=== PATIENT | male | born 1935 | race Hispanic/Latino ===

== ENCOUNTER 2022-02-22 13:48 | Observation (INO) | payer SELFPAY ==
[2022-02-22] VITALS (51 sets, daily range): BP systolic 124–182; BP diastolic 56–87; PULSE 60–81; RESP 16–31; TEMP 36.4–36.5; O2SAT 90–100; BMI 32.5
--- NOTE | ~2022-02-22 | XR_ITS ---
EXAMINATION: XR chest 2V Exam Date/Time: 02/22/2022 16:25 CDT HISTORY: CP, SOB Comparison: None available. RESULT: Lines, tubes, and devices: None. Lungs and pleura: Linear bibasilar opacities, likely scar/atelectasis. Calcified granulomas. Cardiomediastinal silhouette: Cardiomegaly. Mild arch calcification. Other: No acute upper abdominal finding. Degenerative change in the right shoulder and thoracic spin e. Moderate anterior wedge deformity at T12. IMPRESSION: No acute cardiopulmonary process. Moderate T12 wedge compression fracture of uncertain age. Correlate with pain/point tenderness. Reviewed, dictated and finalized at location K. IMPRESSION: No acute cardiopulmonary process. Moderate T12 wedge compression fracture of un certain age. Correlate with pain/point tenderness.
--- NOTE | ~2022-02-22 | CT_ITS ---
EXAMINATION: CTA chest PE protocol DATE: 02/22/2022 18:32 INDICATION: cp, sob, back pain, dizziness TECHNIQUE: Computed tomography angiography (CTA) of the chest was performed with 100 mL Omnipaque-350 intravenous contrast timed to evaluate the pulmonary arteries. Coronal maximum intensity projection 3D-reconstructions were created by the technologist. The dose-length product (DLP) was 430.86 mGy-cm. Automated exposure control and iterative reconstruction technique were employed. COMPARISON: X-ray chest, same date. FINDINGS: Lung parenchyma and airways: Motion limited. Right medial basal atelectasis. Right medial basal air c yst. Bilateral basilar scar/atelectasis. Calcified granulomas. Pleura: Unremarkable. Thoracic inlet, axillae and chest wall: Bilateral gynecomastia. Thoracic aorta: Mild ectasia and arch calcification.. Mediastinum: Large hiatal hernia.. Heart and pericardium: Mild cardiomegaly. Coronary artery calcifications: Mild. Upper abdomen: Possible thickening of the lateral gastric wall. Masslike soft tissue density projecti ng in the herniated portion of the gastric fundus. Left liver lobe calcification. Bilateral renal atr ophy.. Bones: No acute osseous finding. Pulmonary arteries: Study quality: Degraded by respiratory motion such that subsegmental and non-occl usive segmental emboli could be missed, particularly in the bilateral lower lobes. No central or occl usive segmental pulmonary emboli detected. IMPRESSION: Respiratory motion limited examination, particularly in the bilateral lower lobes. No occlusive segme ntal or central embolus detected. Masslike soft tissue density projecting into the herniated portion of the gastric fundus, recommend outpatient gastroenterology referral and consideration for endoscopy . Reviewed, dictated and finalized at location K. IMPRESSION: Respiratory motion limited examination, particularly in the bilateral lower lob es. No occlusive segmental or central embolus detected. Masslike soft tissue de nsity projecting into the herniated portion of the gastric fundus, recommend ou tpatient gastroenterology referral and consideration for endoscopy.
--- NOTE | 2022-02-22 15:27 | ECG_ITS ---
Measurements Intervals [place] Rate: 63 P: 1 ID: [id number] QRS: 2 QRSD: 68 T: 11 QT: 377 QTc: 389 Interpretive Statements SINUS RHYTHM CONSIDER INFERIOR INFARCT, AGE INDETERMINATE ABNORMAL ECG NO PREVIOUS ECG AVAILABLE FOR COMPARISON Electronically Signed On 02-22-2022 17:52:12 CDT by Colton Almazan D.O.
--- NOTE | 2022-02-22 15:55 | ED.RECABL ---
HPI - Recheck/Abnormal Lab/Rx General Chief Complaint: Recheck/Abnormal Lab/Rx <TRISH Grimm Last Filed: 02/22/22 20:08> Stated Complaint: HTN <Swapna Hernandez PA-C - Last Filed: 02/22/22 20:08> Time Seen by Provider: 02/22/22 15:27 <TRISH Grimm Last Filed: 02/22/22 20:08> Source: patient and family <TRISH Grimm Last Filed: 02/22/22 20:08> Mode of arrival: ambulatory <TRISH Grimm Last Filed: 02/22/22 20:08> Limitations: language barrier <TRISH Grimm Last Filed: 02/22/22 20:08> History of Present Illness HPI narrative: Patient is an 86-year-old male who presents the ED with report of elevated blood pressures. Patient is primarily German-speaking and currently visiting from [place] until next week. Family at bedside assisted in providing information. 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 Patient reportedly ate lunch around 1:30 PM today when he developed midsternal chest pain, shortness of breath, upper back pain, abdominal bloating, dizziness. Family then checked his blood pressure and noted it to be elevated 150s-170s systolic. Patient takes losartan 50 mg twice daily and has not missed any doses. Patient states he feels better currently. Denies any recent cough, abdominal pain, nausea, vomiting, fevers. Hx of HLD, but not currently on medication. Former smoker. <TRISH Grimm Last Filed: 02/22/22 20:08> Related Data Home Medications: Home Medications Medication Instructions Recorded Confirmed calcium acetate(phosphat bind) 667 667 mg PO TID 02/22/22 02/22/22 mg tablet losartan 50 mg PO BID 02/22/22 02/22/22 omeprazole 40 mg capsule,delayed 40 mg PO DAILY 02/22/22 02/22/22 release <TRISH Grimm Last Filed: 02/22/22 20:08> Allergies/Adverse Reactions: Allergies Allergy/AdvReac Type Severity Reaction Status Date / Time No Known Allergies Allergy Unverified 02/22/22 15:26 <Swapna Hernandez PA-C - Last Filed: 02/22/22 20:08> Review of Systems Review of Systems: CONSTITUTIONAL: Denies fever, chills, or sweats. EYES: Denies visual changes. CARDIOVASCULAR: Reports chest pain. RESPIRATORY: Reports SOB. Denies cough. GASTROINTESTINAL: Reports abdominal bloating. Denies abdominal pain, nausea, vomiting, or diarrhea. MUSCULOSKELETAL: Reports upper back pain. NEUROLOGIC: Reports dizziness. Denies headache, numbness, or weakness. <TRISH Grimm Last Filed: 02/22/22 20:08> All systems reviewed & are unremarkable except as noted in HPI and below <TRISH Grimm Last Filed: 02/22/22 20:08> FOR[facility]LY [facility] Past Medical History Medical History: Medical History (Updated 02/23/22 @ 01:38 by Maris Chew DO) CKD (chronic kidney disease) Hyperlipidemia Hypertension <TRISH Grimm Last Filed: 02/22/22 20:08> Surgical History Surgical History: Surgical History History of prostatectomy <TRISH Grimm Last Filed: 02/22/22 20:08> Family History Family History: Family History (Updated 02/23/22 @ 01:32 by Maris Chew DO) Father , At age 97 No problems noted. <TRISH Grimm Last Filed: 02/22/22 20:08> Social History Social History: Social History (Updated 02/23/22 @ 01:36 by Maris Chew DO) Social History: The patient is visiting here from [place]. He is German-speaking only. He has a total of 13 children (4 children with his 1st and 9 children with his 2nd ). He has been for over 60 years. He used to smoke quite heavily but quit smoking at least 40 years ago. Smoking packs per day: 1 Smoking cigarettes per day: 20.0 Years smoked: 25 Smoking pack-years: 25.00 Smoking status: Former smoker Tobacco type: cigarettes Second hand tobacco smoke
[2022-02-22 16:47] LABS: Basophils Absolute Auto 0.1 K/mm3 (0.0-0.1); Basophils Percent Auto 0.6 % (0.2-1.2); Eosinophils Absolute Auto 0.4 K/mm3 (0-0.3); Eosinophils Percent Auto 4.2 % (0-4.4); Hematocrit 36.2 % (42.0-52.0); Hemoglobin 11.2 g/dL (14.0-18.0); Immature Granulocyte Absolute 0.06 K/mm3 (0.00-0.031); Immature Granulocyte Percent A 0.6 % (0-0.5); Lymphocytes Absolute Auto 2.66 K/mm3 (0.9-3.2); Lymphocytes Percent Auto 27.7 % (18.3-44.2); Mean Corpuscular HGB Conc 30.9 g/dl (32-36); Mean Corpuscular Hemoglobin 30.2 pg (26-34); Mean Corpuscular Volume 97.6 fl (80-100); Mean Platelet Volume 9.3 fl (7.4-10.4); Monocytes Absolute Auto 1.1 K/mm3 (0.1-0.6); Neutrophils Absolute Auto 5.4 K/mm3 (1.3-6.7); Neutrophils Percent Auto 55.9 % (45.5-73.1); Platelet Count Result 301 k/mm3 (150-375); Red Blood Count 3.71 M/mm3 (4.6-6.20); Red Cell Distribution Width 13.8 % (11.5-14.5); White Blood Count 9.6 K/mm3 (4.5-10.0)
[2022-02-22 16:57] LABS: Alanine Aminotransferase 18 U/L (6-50); Albumin Level 3.9 g/dL (3.5-5.1); Alkaline Phosphatase 144 U/L (38-126); Anion Gap 8 mmol/L (8-16); Aspartate Amino Transferase 22 U/L (17-59); Bilirubin,Total 0.2 mg/dL (0.2-1.3); Blood Urea Nitrogen 39 mg/dL (9-20); Calcium 8.7 mg/dL (8.4-10.2); Carbon Dioxide 24 mmol/L (22-30); Chloride 107 mmol/L (98-107); Estimated Glomerular Filt Rate 38; Glucose 99 mg/dL (65-110); Lipase 255 U/L (23-300); Potassium 5.6 mmol/L (3.4-5.0); Sodium 139 mmol/L (137-145)
[2022-02-22 17:02] LABS: INR 1.1; Partial Thromboplastin Time 28.9 SECONDS (22.3-36.8); Prothrombin Time 13.9 Seconds (11.1-14.7)
[2022-02-22 17:07] LABS: Appearance Urine Clear (Clear); Bilirubin Urine Negative (Negative); Blood Urine Negative (Negative); Color Urine Yellow (Yellow); Glucose Urine UA Negative (Negative); Ketones Urine Negative (Negative); Leukocyte Esterase Ur Negative LEU/UL (Negative); Nitrate Urine Negative (Negative); Protein Urine Negative (Negative); Urobilinogen Urine 0.2 mg/dL (<2.0); pH Urine 6.5 (5.0-9.0)
[2022-02-22 17:09] LABS: Add Urine Microscopic? NO; RBC Urine 0-2 /hpf (0-2)
[2022-02-22 17:09] LABS: NT Pro B Type Natriuretic Pept 276 pg/mL (5-100); Troponin I < 0.012 ng/mL (0.000-0.034)
[2022-02-22 17:20] LABS: D Dimer 0.84 ug/mL (<0.48)
[2022-02-22] MEDS: SODIUM CHLORIDE 0.9% IV 1,000 ML 999 ML IV CONT (18:05)
[2022-02-22] MEDS: DEXTROSE 50% 25 GM/50 ML SYRINGE IV PUSH (18:06)
[2022-02-22] MEDS: SODIUM POLYSTYRENE SULFONONATE 15 GM/60 ML BTL PO (18:06)
[2022-02-22] MEDS: INSULIN HUMAN REGULAR (*BKC) 100 UNITS/ML 10 UNITS IV PUSH (18:07)
[2022-02-22] MEDS: CALCIUM GLUCONATE 1,000 MG/10 ML VIAL 1000 MG IV PUSH (18:07)
--- NOTE | 2022-02-22 19:45 | PC.NURSE ---
BG checked, result was 45 provider aware amp of d50 given to pt PT ALSO ENCOURAGED TO SNACK AND DRINK JUICE GIVEN TO HIM
[2022-02-22] MEDS: DEXTROSE 50% 25 GM/50 ML SYRINGE (19:47)
[2022-02-22] MEDS: ASPIRIN 81 MG CHEWABLE TABLET 324 MG PO (19:57)
[2022-02-22 20:11] LABS: Troponin I < 0.012 ng/mL (0.000-0.034)
--- NOTE | 2022-02-22 20:13 | PC.NURSE ---
blood sugar recheck 199 form block maker in room aware. no new orders. will continue to monitor.
[2022-02-22 20:14] LABS: Glucose Point of Care 199 mg/dl (65-105)
--- NOTE | 2022-02-22 20:18 | PM.IMHP ---
H&P: HPI History of Present Illness Date/Time: 02/22/22 20:18 Chief Complaint: Elevated blood pressure Narrative: 86-year-old male with a past medical history of GERD, hypertension, BPH, chronic kidney disease and hyperlipidemia who presented to the ER with high blood pressure. The patient is been [place] the [place] visiting his daughter. He plans to go back to [place] next week. He reports that he was eating lunch and shortly thereafter began having initially back pain that radiated to the epigastric and substernal chest pain. It was accompanied by sensation of bloating. The pain lasted 2-3 minutes and resolved without intervention. It was accompanied by brief shortness of breath. He also felt somewhat dizzy at the time of symptoms. He denies any palpitations. Due to his symptoms the family checked his blood pressures which were elevated into the 150s and 170 systolic. So they brought him to the ER for evaluation. He does not have shortness of breath a baseline and denies any persistent shortness of breath. He does have a chronic cough due to history of COPD. His cough is not changed from baseline. He denies any fevers or chills. He denies any recent ill contacts. Despite this the patient's COVID PCR in the ER with became back positive for COVID. He does have a history of chronic GERD and takes omeprazole daily. He has never had a EGD. His D-dimer came back minimally elevated in the ER which actually when adjusted for age was within normal limits. However, he still underwent CTA of the chest abdomen pelvis. CT demonstrated a large hiatal hernia with masslike soft tissue density projecting into the herniated portion of the gastric fundus. Patient's EKG was unremarkable. He had 2 sets of troponins that were negative. The patient reports no history of heart disease or heart failure. He denies orthopnea or paroxysmal nocturnal dyspnea. He has not had any palpitations. He has not had any unintentional weight loss. He has been on losartan twice a day for many years. In the ER was noted the patient had some mild hyperkalemia in the ER provider felt that there were some peaked T-waves the patient received insulin, dextrose, calcium and Kayexalate. His repeat glucose after insulin therapy was down to 45. Entirety of HPI was obtained from patient report and ER report. History was obtained through the use of video certified court/medical interpreter services. Review of Systems Review of Systems: 12 systems were reviewed with pertinent positives and negatives per HPI. Except as documented in the HPI, all other systems were reviewed and are negative. FOR[facility]LY [facility], [facility] Past Medical History Medical History (Updated 02/23/22 @ 01:38 by Maris Chew DO) CKD (chronic kidney disease) Hyperlipidemia Hypertension Surgical History Surgical History History of prostatectomy Family History Family History (Updated 02/23/22 @ 01:32 by Maris Chew DO) Father , At age 97 No problems noted. Social History Social History (Updated 02/23/22 @ 01:36 by Maris Chew DO) Social History: The patient is visiting here from [place]. He is Kittitian-speaking only. He has a total of 13 children (4 children with his 1st and 9 children with his 2nd ). He has been for over 60 years. He used to smoke quite heavily but quit smoking at least 40 years ago. Smoking packs per day: 1 Smoking cigarettes per day: 20.0 Years smoked: 25 Smoking pack-years: 25.00 Smoking status: Former smoker Tobacco type: cigarettes Second hand tobacco smoke exposure: Yes Smoking end date: 06/08/86 Alcohol intake: never Substance use: never Spiritual care concerns: No Comments He reports that his 2 other siblings are in their 90s and are still alive and healthy. Meds Home Medications and Allergies Home Medications Medication Instructions Recorded Confirmed Type
[2022-02-22 20:23] LABS: SARS-CoV-2 RNA PCR Positive
--- NOTE | 2022-02-22 21:48 | ADMGEN ---
This patient, Alfredo Lagunas, was admitted to IMU Room [id number]. Patient/family oriented to hospital policies and general routines including ID bracelet, bed and alarms, visiting hours, pain management, procedures, bathroom and other care routines, personal items, smoking policy, room service/diet, and visiting hours. Information on how to activate the Rapid Response Team has been discussed. Patient/Family are encouraged to report perceived risks to care and to ask questions if they do not understand what they are told or what they should do.
--- NOTE | 2022-02-22 23:01 | PC.NURSE ---
Admission and medication review done with Alannah merchant seaman. Daughter called to verify phone number and she speaks minimal Spanish as well.
--- NOTE | 2022-02-22 23:05 | PC.NURSE ---
Unknown family history although father passed at 96 and both brothers are still alive and in their 90s. Pt did not know Mother.
[2022-02-23] VITALS (10 sets, daily range): BP systolic 128–142; BP diastolic 57–67; PULSE 61–75; RESP 16–22; TEMP 36.6–36.8; O2SAT 91–97
[2022-02-23 00:10] LABS: Glucose Point of Care 45 mg/dl (65-105)
[2022-02-23] MEDS: METOPROLOL TARTRATE 25 MG TABLET PO ×2 (02:03→09:40)
[2022-02-23] MEDS: SODIUM CHLORIDE 0.9% IV 1,000 ML 100 ML IV CONT (02:04)
[2022-02-23 04:50] LABS: Hematocrit 33.2 % (42.0-52.0); Hemoglobin 10.4 g/dL (14.0-18.0); Mean Corpuscular HGB Conc 31.3 g/dl (32-36); Mean Corpuscular Hemoglobin 30.1 pg (26-34); Mean Corpuscular Volume 96.2 fl (80-100); Mean Platelet Volume 9.7 fl (7.4-10.4); Platelet Count Result 277 k/mm3 (150-375); Red Blood Count 3.45 M/mm3 (4.6-6.20); Red Cell Distribution Width 13.7 % (11.5-14.5); White Blood Count 9.1 K/mm3 (4.5-10.0)
[2022-02-23 05:01] LABS: Anion Gap 13 mmol/L (8-16); Blood Urea Nitrogen 32 mg/dL (9-20); Carbon Dioxide 23 mmol/L (22-30); Chloride 106 mmol/L (98-107); Cholesterol 153 mg/dL (0-200); Estimated CRCL calculation 26 ml/min; Estimated Glomerular Filt Rate 41; Glucose 84 mg/dL (65-110); HDL Direct 33 mg/dL; Potassium 4.4 mmol/L (3.4-5.0); Sodium 142 mmol/L (137-145); Triglycerides 111 mg/dL (<150)
[2022-02-23 05:11] LABS: LDL Cholesterol Direct 81 mg/dL; Troponin I < 0.012 ng/mL (0.000-0.034)
[2022-02-23 08:20] LABS: Glucose Point of Care 86 mg/dl (65-105)
[2022-02-23] MEDS: LOSARTAN POTASSIUM 50 MG TABLET PO (09:40)
[2022-02-23] MEDS: PANTOPRAZOLE 40 MG TABLET PO (09:40)
[2022-02-23] MEDS: CALCIUM ACETATE 667 MG TABLET PO (09:40)
--- NOTE | 2022-02-23 10:22 | WPDGICN ---
Assessment and Plan Assessment and plan (1) Chest pain: Qualifiers: Chest pain type: unspecified Qualified Code(s): R07.9 - Chest pain, unspecified Code(s): R07.9 - Chest pain, unspecified Status: Acute Assessment and Plan: resolved now (2) COVID-19: Code(s): U07.1 - COVID-19 Status: Acute Assessment and Plan: positive covid, chronic cough, reviewed CT scan he is on isolation s/p 3 vaccines (3) Gastric mass: Code(s): K31.89 - Other diseases of stomach and duodenum Status: Acute Assessment and Plan: he eventually will need EGD, I would rather do it in ~ 2 weeks because COVID denies dysphagia, nausea or weight loss incidental finding by CTA chest (4) CKD (chronic kidney disease): Qualifiers: Chronic kidney disease stage: stage 3 (moderate) Chronic kidney disease stage 3 subtype: stage 3b (GFR 30-44) Qualified Code(s): N18.32 - Chronic kidney disease, stage 3b Code(s): N18.9 - Chronic kidney disease, unspecified Status: Acute Assessment and Plan: creatitine 1.6, probably baseline (5) Chronic anemia: Code(s): D64.9 - Anemia, unspecified Status: Acute Assessment and Plan: hb ~10 (6) GERD (gastroesophageal reflux disease): Code(s): K21.9 - Gastro-esophageal reflux disease without esophagitis Status: Acute Assessment and Plan: on ppi at home GI Consult Note Consult date/time: 02/23/22 10:22 Reason for consult: epigastric pain, possible gastric mass HPI: Alfredo Lagunas is a 86 year old male who is originally from [place] and only speaks Salvadorean, now is visiting his family and arrived here 3 weeks ago. He has past medical history of GERD, hypertension, BPH, chronic kidney disease and hyperlipidemia who presented to the ER with high blood pressure and after new onset of back pain that radiated to the epigastric and substernal chest pain, moderated intensity and accompanied by sensation of bloating, lasted 2-3 minutes, also shortness of breath with dizziness and feeling like passing out. Family checked his blood pressures which were elevated into the 150s and 170 systolic.? He also has chronic cough due to history of COPD which is unchanged but COVID PCR in the ER was positive (he had his 3 vaccines and had COVID more than a year ago in [place]). He does have a history of chronic GERD and takes omeprazole daily, had EGD but years ago, also D-dimer was minimally elevated and had CTA of the chest abdomen pelvis that showed large hiatal hernia with masslike soft tissue density projecting into the herniated portion of the gastric fundus.?No nausea, vomiting or weight loss. He is feeling better and asking if could go home soon. I talked to his son by phone in Salvadorean. Review of Systems Constitutional: Constitutional: Denies headache(s) and Denies weakness Eyes: Eyes: Denies blurry vision ENT: Reports Normal hearing present, Denies headache(s) and Denies neck pain Cardiovascular: Cardiovascular: Denies chest pain and Denies dyspnea Respiratory: Respiratory: Reports cough and Reports dyspnea Gastrointestinal: Gastrointestinal: Reports no additional gastrointestinal complaints Genitourinary: Genitourinary: Denies dysuria Musculoskeletal: Musculoskeletal: Denies neck pain Integumentary/Breasts: Skin/Breast: Denies dry skin Neurologic: Reports Normal hearing present Comments: feeling like passing out Psychiatric: Psychiatric: Denies anxiety Endocrine: Endocrine: Denies change in body appearance Hematologic/Lymphatic: Hematologic/Lymphatic: Denies easy bleeding Allergic/Immunologic: Allergic/Immunologic: Denies urticaria PMFSH Past Medical History Medical History (Updated 02/23/22 @ 10:28 by Andrea Paz MD) Chronic anemia CKD (chronic kidney disease) GERD (gastroesophageal reflux disease) Hyperlipidemia Hypertension Surgical History Surgical History (Re
[2022-02-23 12:49] LABS: Glucose Point of Care 144 mg/dl (65-105)
--- NOTE | 2022-02-23 15:57 | PM.DS ---
DS: Admitting Diagnosis Discharge Date February 23, 2022 Admitting Diagnosis Back and chest pain DS: Discharge Diagnosis Discharge Diagnosis (1) Chest pain: Qualifiers: Chest pain type: unspecified Qualified Code(s): R07.9 - Chest pain, unspecified Code(s): R07.9 - Chest pain, unspecified Status: Acute Assessment and Plan: The patient's chest pain is atypical. His pain is most likely due to his large hiatal hernia. He has had 2 sets of negative cardiac enzymes. Cardiology has been contacted from the ER but given that the patient has negative cardiac enzymes and atypical chest pain I will cancel cardiology consult at this time. (2) Acute hyperkalemia: Code(s): E87.5 - Hyperkalemia Status: Acute Assessment and Plan: The patient has mild hyperkalemia which I do not think is acutely symptomatic at this time. Patient did receive calcium, insulin, dextrose, and Kayexalate in the ER. Will repeat BMP in a.m.. We will decrease the patient's home losartan down to 50 mg a day and from b.i.d. dosing. (3) HLD (hyperlipidemia): Qualifiers: Hyperlipidemia type: unspecified Qualified Code(s): E78.5 - Hyperlipidemia, unspecified Code(s): E78.5 - Hyperlipidemia, unspecified Status: Acute Assessment and Plan: Patient is not on statin therapy at home. Will check a fasting lipid panel. (4) CKD (chronic kidney disease): Qualifiers: Chronic kidney disease stage: stage 3 (moderate) Chronic kidney disease stage 3 subtype: stage 3b (GFR 30-44) Qualified Code(s): N18.32 - Chronic kidney disease, stage 3b Code(s): N18.9 - Chronic kidney disease, unspecified Status: Acute Assessment and Plan: Patient does not know his baseline creatinine but I suspect this is likely the patient's baseline renal function. Will continue home calcium acetate. Since the patient received contrast for CT of the chest in the ER will place patient on maintenance IV fluids and monitor urine output. (5) Hypertension: Qualifiers: Hypertension type: primary hypertension Qualified Code(s): I10 - Essential (primary) hypertension Code(s): I10 - Essential (primary) hypertension Status: Acute Assessment and Plan: Patient's blood pressure is mildly above goal. Will place patient on metoprolol 25 mg b.i.d. and will decrease patient's losartan to once daily dosing given his hyperkalemia and chronic kidney disease. (6) Gastric mass: Code(s): K31.89 - Other diseases of stomach and duodenum Status: Acute Assessment and Plan: The patient's CT findings could have outpatient follow-up for EGD but since patient is from [place] and I cannot ensure patient follow-up as outpatient will consult Gastroenterology for evaluation and further recommendations. Will continue PPI therapy. (7) COVID-19: Code(s): U07.1 - COVID-19 Status: Acute Assessment and Plan: The patient is COVID positive but asymptomatic. Continue to monitor. DS: Summary Hospital Course Hospital Course: 86-year-old male with a past medical history of GERD, hypertension, BPH, chronic kidney disease and hyperlipidemia who presented to the ER with high blood pressure.? The [place] visiting his daughter.? He plans to go back to [place] next week.? He reports that he was eating lunch and shortly thereafter began having initially back pain that radiated to the epigastric and substernal chest pain.? It was accompanied by sensation of bloating.? The pain lasted 2-3 minutes and resolved without intervention.? It was accompanied by brief shortness of breath.? He also felt somewhat dizzy at the time of symptoms.? He denies any palpitations.? Due to his symptoms the family checked his blood pressures which were elevated into the 150s and 170 systolic.? So they brought him to the ER for evaluat
== END 2022-02-23 16:39 | disposition home or self-care (01) ==
LOC: ANHED 19:53 → ANHIMU 23:20
PROVIDERS: Physician Assistant; Admitting Provider Internal Medicine; Emergency Provider General Practice; Visit Provider Student in an Organized Health Care Education/Training Program
DX: R07.9 Chest pain, unspecified (principal); E87.5 Hyperkalemia; U07.1 COVID-19; K31.89 Other diseases of stomach and duodenum; E78.5 Hyperlipidemia, unspecified; I12.9 Hypertensive chronic kidney disease with stage 1 through stage 4 chronic kidney disease, or unspecified chronic kidney disease; N18.32 Chronic kidney disease, stage 3b; S22.080A Wedge compression fracture of T11-T12 vertebra, initial encounter for closed fracture; K21.9 Gastro-esophageal reflux disease without esophagitis; R94.31 Abnormal electrocardiogram [ECG] [EKG]; D64.9 Anemia, unspecified; N40.0 Benign prostatic hyperplasia without lower urinary tract symptoms; J44.9 Chronic obstructive pulmonary disease, unspecified; K44.9 Diaphragmatic hernia without obstruction or gangrene; Z77.22 Contact with and (suspected) exposure to environmental tobacco smoke (acute) (chronic); Z87.891 Personal history of nicotine dependence; Z79.899 Other long term (current) drug therapy; X58.XXXA Exposure to other specified factors, initial encounter
CPT/HCPCS: 36415; 71046; 71275; 80048; 80053; 80061; 81003; 82948; 83690; 83880; 84484; 85025; 85027; 85380; 85610; 85730; 93005; 96361; 96374; 96375; 99285; A9270; C9803; G0378; J0610; J1815; J7030; Q9967; U0003; U0005